=== PATIENT | male | born 1985 | race African-American/Black ===

== ENCOUNTER → 2025-05-14 10:56 | Outpatient (REF) | payer OTHER, SELFPAY | LOC: HWRAD 10:56 | PROVIDERS: ATTENDING PHYSICIAN Nurse Practitioner Acute Care | DX: I50.9 Heart failure, unspecified (principal) | CPT/HCPCS: 71046 ==

== ENCOUNTER → 2025-07-04 08:39 | Outpatient (REF) | payer OTHER, MEDICARE, SELFPAY ==
--- NOTE | 2025-07-04 10:16 | CARDSERVDEF ---
Echocardiogram with Definity completed after protocol screening completed. Allergies verified.
Patent IV site: _Right hand 22 G PC inserted by Ivet Wilks RN____
IV site flushed with 0.9% NaCl pre and post administration.
Diluted bolus method utilized to enhance visualization of ventricular tay.
Total volume given: _3__ mL
Patient tolerated all procedures well without complications.
Heplock D/C at 1014, site clear, no redness, no edema. Pressure held, no bleeding, 2x2 applied and taped. No change in status.
== END ==
LOC: RCS 08:39
PROVIDERS: ATTENDING PHYSICIAN Internal Medicine Cardiovascular Disease
DX: I50.9 Heart failure, unspecified (principal); I42.9 Cardiomyopathy, unspecified; I10 Essential (primary) hypertension; E78.00 Pure hypercholesterolemia, unspecified; I48.91 Unspecified atrial fibrillation; E66.9 Obesity, unspecified
CPT/HCPCS: 93307; Q9957

== ENCOUNTER → 2025-07-24 11:57 | Outpatient (REF) | payer OTHER, MEDICARE, SELFPAY | LOC: DHSLP 11:57 | PROVIDERS: ATTENDING PHYSICIAN Internal Medicine Critical Care Medicine; FAMILY PHYSICIAN Internal Medicine Critical Care Medicine | DX: G47.33 Obstructive sleep apnea (adult) (pediatric) (principal); R09.02 Hypoxemia | CPT/HCPCS: 95811 ==